=== PATIENT | male | born 1940 | race Caucasian/White ===

== ENCOUNTER 2020-04-23 09:21 | Emergency (ER) | payer MEDICARE, SELFPAY ==
--- NOTE | ~2020-04-23 | XR_ITS ---
XR lumbar spine min 4V DATE: 04/23/2020 09:56 INDICATION: Fall. Low back pain. TECHNIQUE: AP, lateral, bilateral oblique views, coned lateral lumbosacral view COMPARISON: None FINDINGS: There is diffuse osteopenia. There is degenerative spurring of the lower thoracic spine. There is degenerative change at the apophyseal joints at L4-5 and L5-S1 in particular, with associate d grade 1 anterolisthesis at L4-5. There is moderately severe degenerative disc disease at L5-S1. There is mild/moderate degenerative di sc disease at the remaining lumbar interspaces. No fracture or bone destruction is evident. The included lower thoracic and lumbar pedicles are intac t. The sacroiliac joints appear normal. Surgical clips, right upper quadrant, consistent with cholecystectomy. IMPRESSION: Diffuse osteopenia Mild lumbar dextroscoliosis Multilevel degenerative disc disease, most pronounced at L5-S1 Grade 1 anterolisthesis at L4-5 due to degenerative change at the apophyseal joints Reviewed, dictated and finalized at location A. [employer] IMPRESSION: Diffuse osteopenia Mild lumbar dextroscoliosis Multilevel degenerative disc disease, most pronounced at L5-S1 Grade 1 anterolisthesis at L4-5 due to degenerative change at the apophyseal dori ints
[2020-04-23 09:32] VITALS: BP 148/62; PULSE 66; RESP 17; TEMP 35.9; O2SAT 97
--- NOTE | 2020-04-23 10:05 | PC.NURSE ---
Pt back from radiology at this time.
--- NOTE | 2020-04-23 10:10 | ED.FALL ---
HPI - Fall General Chief Complaint: Fall Stated Complaint: fall, back pain Time Seen by Provider: 04/23/20 09:27 Source: patient Mode of arrival: ambulatory Limitations: no limitations History of Present Illness HPI Narrative: 80-year-old with a history of hypertension here with complaints of low back pain. Patient states that he was trying to move a chair in his garage and accidentally tripped and fell. He denies any head and neck pain. He states pain is mostly in the left lower back area. He denies any other injuries or complaints at this time. complaint: fall Onset (ago): day(s) (1) Fall from: standing Fall witnessed: no Place fall occurred: home Loss of consciousness: none Prolonged down time: no Symptoms prior to fall: none Context: tripped/slipped Location of injury: back Severity: moderate Quality: dull Associated symptoms (after fall): denies Related Data Allergies Allergy/AdvReac Type Severity Reaction Status Date / Time No Known Allergies Allergy Mild Unverified 06/06/19 11:54 Review of Systems Review of Systems: All systems reviewed & are unremarkable except as noted in HPI and below Constitutional: Constitutional: Reports no additional constitutional complaints Eyes: Eyes: Reports no additional eye complaints ENT: Reports system reviewed and no additional complaints, except as documented Cardiovascular: Cardiovascular: Reports no additional cardiovascular complaints Respiratory: Respiratory: Reports no additional respiratory complaints Gastrointestinal: Gastrointestinal: Reports no additional gastrointestinal complaints Musculoskeletal: Musculoskeletal: Reports as per HPI Neurologic: Reports system reviewed and no additional complaints, except as documented PMFSH Social History Social History Gender identity (if verbalized by the patient): Male Exam Narrative: Exam Narrative: GENERAL: Well-appearing, well-nourished, and in no acute distress. HEAD: Normocephalic, atraumatic. EYES: PERRLA and EOMI. ENT: Nares clear, no rhinorrhea or epistaxis. NECK: Supple. CHEST: Clear to auscultation. No respiratory distress. HEART: Regular rate and rhythm. No murmur heard. Normal peripheral pulses. ABDOMEN: Soft, nontender, nondistended. EXTREMITIES: Normal range of motion. No edema. Back : No vertebral point tenderness, no bruising note ,mild tenderness above the iliac crest SKIN: Warm, dry, no rash. NEURO: No focal deficits. Alert and oriented x3. PSYCH: Normal mood and affect. Course Course Emergency Course: informed pt about his Xray findings, advised him to take pain meds as needed. Vital Signs Vital signs: Vital Signs Temperature 35.9 C L 04/23/20 09:32 Pulse Rate 66 04/23/20 09:32 Respiratory Rate 17 04/23/20 09:32 Blood Pressure 148/62 H 04/23/20 09:32 Pulse Oximetry 97 04/23/20 09:32 Temperature 35.9 C L 04/23/20 09:32 Pulse Rate 66 04/23/20 09:32 Respiratory Rate 17 04/23/20 09:32 Blood Pressure 148/62 H 04/23/20 09:32 Pulse Oximetry 97 04/23/20 09:32 MDM - Fall Imaging Data Radiologist's impression: ITS Impressions Lumbar Spine X-Ray 04/23/20 09:58 IMPRESSION: Diffuse osteopenia Mild lumbar dextroscoliosis Multilevel degenerative disc disease, most pronounced at L5-S1 Grade 1 anterolisthesis at L4-5 due to degenerative change at the apophyseal joints Discharge Plan Discharge Clinical Impression: Contusion of lower back Qualifiers: Encounter type: initial encounter Qualified Code(s): S30.0XXA - Contusion of lower back and pelvis, initial encounter Patient Disposition: Home, Self-Care Condition: Stable Instructions: Antibiotic Form Prescriptions: New tramadol 50 mg tablet 50 mg PO Q6H PRN (Reason: pain) Qty: 14 RF: 0 Follow-up/Referrals: Anuj,MD Marta [Primary Care Provider] - Time of Disposition: 10:16
[2020-04-23 10:35] VITALS: BP 118/75; PULSE 78; RESP 16; O2SAT 100
== END 2020-04-23 10:36 | disposition home or self-care (01) ==
PROVIDERS: Emergency Provider Family Medicine; PCP Internal Medicine Geriatric Medicine
DX: S30.0XXA Contusion of lower back and pelvis, initial encounter (principal); M51.36 Other intervertebral disc degeneration, lumbar region; M51.37 Other intervertebral disc degeneration, lumbosacral region; W01.0XXA Fall on same level from slipping, tripping and stumbling without subsequent striking against object, initial encounter
CPT/HCPCS: 72110; 99283

== ENCOUNTER 2020-12-18 02:29 | Emergency (ER) | payer MEDICARE, SELFPAY ==
--- NOTE | ~2020-12-18 | XR_ITS ---
EXAMINATION: XR chest 1V portable DATE: 12/18/2020 02:55 INDICATION: Chest pain. TECHNIQUE: A single frontal view of the chest was obtained. COMPARISON: Chest single view 02/07/2016 FINDINGS: There are mild airspace opacities in the upper lung zones and lower lung zones. No pleural effusion or pneumothorax. The heart size is normal. Median sternotomy wires and mediastinal surgical clips are seen, likely from prior coronary artery bypass grafting. IMPRESSION: 1. Mild airspace opacities in the upper lung zones and lower lung zones, likely a combination of scar ring and atelectasis. Reviewed, dictated and finalized at location A. IMPRESSION: 1. Mild airspace opacities in the upper lung zones and lower lung zones, likely a combination of scarring and atelectasis.
--- NOTE | 2020-12-18 02:33 | ECG_ITS ---
Measurements Intervals [place] Rate: 65 P: 76 NH: 149 QRS: -15 QRSD: 83 T: 47 QT: 372 QTc: 387 Interpretive Statements SINUS RHYTHM INFERIOR INFARCT, AGE INDETERMINATE BORDERLINE ST ABNORMALITY- ANTEROLATERAL LEADS BASELINE ARTIFACT- I, II, AVR, AVL, AVF, V1 ABNORMAL ECG Electronically Signed On 12-18-2020 10:15:12 CDT by Dewey Clay D.O.
[2020-12-18 02:37] VITALS: BP 95/47; PULSE 69; RESP 23; TEMP 37; O2SAT 93
--- NOTE | 2020-12-18 02:43 | ED.NAVMDI ---
HPI - Nausea/Vomiting/Diarrhea General Chief complaint: Nausea/Vomiting/Diarrhea Stated complaint: N/V Time Seen by Provider: 12/18/20 02:34 Source: patient Mode of arrival: EMS Limitations: no limitations History of Present Illness HPI Narrative: Patient is an 80-year-old male complaining of nausea vomiting that started today. Patient describes his vomitus is nonbilious nonbloody. Patient states that he has been having URI symptoms for the few days, been coughing, productive clear yellowish sputum. Patient denies any chest pain, shortness of breath, abdominal pain, diarrhea, fever or chills. Patient states that his blood pressure is usually low and does not know why his doctor still prescribes him a blood pressure medication. Related Data Allergies Allergy/AdvReac Type Severity Reaction Status Date / Time No Known Allergies Allergy Mild Verified 12/18/20 02:51 Review of Systems Review of Systems: All systems reviewed & are unremarkable except as noted in HPI and below Constitutional: Constitutional: Denies body ache(s), Denies chills, Denies excessive sweating, Denies fatigue, Denies fever(s), Denies headache(s), Denies lethargy, Denies malaise, Denies weakness and Denies weight loss Eyes: Eyes: Denies blurry vision, Denies change in vision and Denies loss of vision ENT: Denies dizziness, Denies ear discharge, Denies headache(s), Denies lip swelling, Denies epistaxis, Denies nasal congestion, Denies neck pain, Denies throat swelling and Denies tongue swelling Cardiovascular: Cardiovascular: Denies chest pain, Denies chest pain at rest, Denies chest pain with activity, Denies diaphoresis, Denies rapid heart rate, Denies edema, Denies irregular heart rhythm, Denies lightheadedness, Denies palpitations, Denies dyspnea and Denies dyspnea on exertion Respiratory: Respiratory: Denies chest congestion, Denies cough, Denies hemoptysis, Denies dyspnea and Denies dyspnea on exertion Gastrointestinal: Gastrointestinal: Denies abdominal pain, Denies melena, Denies hematochezia, Denies diarrhea and Denies hematemesis Musculoskeletal: Musculoskeletal: Denies abnormal gait, Denies deformity, Denies joint swelling, Denies limited range of motion, Denies neck pain and Denies numbness Neurologic: Denies Abnormal speech present, Denies abnormal gait, Denies confusion, Denies dizziness, Denies headache(s), Denies focal weakness, Denies loss of vision, Denies numbness, Denies Other visual disturbances, Denies Sensory deficit (Neuro) and Denies weakness Psychiatric: Psychiatric: Denies confusion, Denies depression, Denies auditory hallucinations, Denies homicidal ideation and Denies suicidal ideation Endocrine: Endocrine: Denies cold intolerance, Denies excessive sweating, Denies fatigue, Denies heat intolerance and Denies palpitations Hematologic/Lymphatic: Hematologic/Lymphatic: Denies easy bleeding and Denies easy bruising Allergic/Immunologic: Allergic/Immunologic: Denies lip swelling, Denies throat swelling and Denies tongue swelling PMFSH Social History Social History Gender identity (if verbalized by the patient): Male Comments Past medical history: Coronary artery disease with stents Family history: Coronary artery disease Social history: Non-smoker no EtOH or drug use Exam Const: General: cooperative, healthy appearing, comfortable, no acute distress, well developed, alert and awake; No confusion Orientation/consciousness: oriented to person, oriented to place, oriented to time, patient oriented x3 and No confusion Limitations: no limitations Other: Frail HENMT: Head: normal to inspection, normocephalic and atraumatic Ears: hearing grossly normal bilaterally, TM normal on the right and TM normal on the left General nose exam: Normal external nose present, Normal nares present and No nasal discharge present Face and sinus: normal facial exam Mouth: Yes Normal oral and palatal
[2020-12-18] MEDS: LACTATED RINGERS 1,000 ML 999 ML IV CONT (02:50)
[2020-12-18 03:01] LABS: Basophils Percent Auto 0.6 % (0.2-1.2); Eosinophils Percent Auto 0.6 % (0-4.4); Hematocrit 41.6 % (42.0-52.0); Hemoglobin 13.5 g/dL (14.0-18.0); Immature Granulocyte Absolute 0.01 K/mm3 (0.00-0.031); Immature Granulocyte Percent A 0.2 % (0-0.5); Lymphocytes Absolute Auto 0.28 K/mm3 (0.9-3.2); Lymphocytes Percent Auto 4.4 % (18.3-44.2); Mean Corpuscular HGB Conc 32.5 g/dl (32-36); Mean Corpuscular Hemoglobin 31.1 pg (26-34); Mean Corpuscular Volume 95.9 fl (80-100); Mean Platelet Volume 9.2 fl (7.4-10.4); Monocytes Absolute Auto 0.5 K/mm3 (0.1-0.6); Monocytes Percent Auto 7.8 % (2.6-8.5); Neutrophils Absolute Auto 5.5 K/mm3 (1.3-6.7); Neutrophils Percent Auto 86.4 % (45.5-73.1); Platelet Count Result 156 k/mm3 (150-375); Red Blood Count 4.34 M/mm3 (4.6-6.20); Red Cell Distribution Width 12.9 % (11.5-14.5); White Blood Count 6.4 K/mm3 (4.5-10.0)
[2020-12-18 03:11] LABS: Alanine Aminotransferase 16 U/L (4-50); Albumin Level 4.1 g/dL (3.5-5.1); Alkaline Phosphatase 85 U/L (38-126); Anion Gap 8 mmol/L (8-16); Aspartate Amino Transferase 25 U/L (17-59); Bilirubin,Total 1.8 mg/dL (0.2-1.3); Blood Urea Nitrogen 12 mg/dL (9-20); Calcium 9.1 mg/dL (8.4-10.2); Carbon Dioxide 27 mmol/L (22-30); Chloride 100 mmol/L (98-107); Estimated CRCL calculation 54 ml/min; Estimated Glomerular Filt Rate > 60; Glucose 129 mg/dL (65-110); Lipase 103 U/L (23-300); Potassium 4.1 mmol/L (3.4-5.0); Sodium 135 mmol/L (137-145)
[2020-12-18 03:23] LABS: Troponin I < 0.012 ng/mL (0.000-0.034)
[2020-12-18 03:39] VITALS: BP 112/51; PULSE 65; RESP 14; O2SAT 95
[2020-12-18 03:46] LABS: Add Urine Microscopic? YES; Appearance Urine Clear (Clear); Bilirubin Urine Negative (Negative); Blood Urine 1+ (Negative); Color Urine Yellow (Yellow); Glucose Urine UA Negative (Negative); Ketones Urine Trace mg/dL (Negative); Leukocyte Esterase Ur Negative LEU/UL (Negative); Mucus Urine Rare /lpf; Nitrate Urine Negative (Negative); Protein Urine Negative (Negative); Specific Grav Ur 1.017 (1.001-1.035); Squamous Epithelial Cell Urine Rare /hpf (Few); WBC Urine 0-3 /hpf
[2020-12-18] MEDS: ONDANSETRON INJ 4 MG/2 ML VIAL IV PUSH (03:56)
[2020-12-18 04:51] LABS: Troponin I 0.014 ng/mL (0.000-0.034)
[2020-12-18 05:30] VITALS: BP 108/54; PULSE 66; RESP 18; O2SAT 95
== END 2020-12-18 05:30 | disposition home or self-care (01) ==
PROVIDERS: Emergency Provider Emergency Medicine; PCP Internal Medicine Geriatric Medicine
DX: R11.2 Nausea with vomiting, unspecified (principal); I25.10 Atherosclerotic heart disease of native coronary artery without angina pectoris; Z95.5 Presence of coronary angioplasty implant and graft; R94.31 Abnormal electrocardiogram [ECG] [EKG]
CPT/HCPCS: 36415; 71045; 80053; 81001; 83690; 84484; 85025; 93005; 96361; 96374; 99284; J2405; J7120

== ENCOUNTER 2020-12-23 10:06 | Emergency (ER) | payer MEDICARE, SELFPAY ==
[2020-12-23 10:28] VITALS: BP 170/74; PULSE 87; RESP 20; TEMP 36.6; O2SAT 94
--- NOTE | 2020-12-23 10:34 | ED.URI ---
HPI - URI/Sore Throat General Chief Complaint: Upper Respiratory Infection Stated Complaint: Cough,Chest Congestion,Nausea Time Seen by Provider: 12/23/20 10:22 Source: patient and RN notes reviewed Mode of arrival: ambulatory History of Present Illness HPI Narrative: This is a 80-year-old male who presented to urgent care with complaints of a cough nausea vomiting, congestion and subjective fever. According to patient he visited [facility] couple of weeks ago due to the symptoms. According to patient in the past he has had the symptoms and had cardiac issues. That particular visit patient symptoms was not cardiac associated. Patient is notes that he continues to have a cough with congestion weakness decreased appetite and shortness of breath. Patient will be tested for Covid he has been vaccinated. The patient denies , CP, palpitation, extremity numbness, lightheadedness, dizziness, constipation, diarrhea, chills, or fever. Covid negative Related Data Home Medications Medication Instructions Recorded Confirmed atorvastatin 40 mg PO DAILY 12/23/20 12/23/20 benazepril 5 mg PO DAILY 12/23/20 12/23/20 nitroglycerin 0.4 mg SUBLINGUAL .PRN PRN 12/23/20 12/23/20 Allergies Allergy/AdvReac Type Severity Reaction Status Date / Time No Known Allergies Allergy Mild Verified 12/23/20 10:36 Review of Systems Review of Systems: A 14 organ system Review of Systems was performed and pertinent positives included in the HPI, otherwise remaining ROS is negative. [facility] Social History Social History Gender identity (if verbalized by the patient): Male Exam Narrative: GENERAL: This is a well-nourished, well-developed patient, in no apparent distress. HEAD: normocephalic, atraumatic. EYES: PERRL. Sclera clear/white. Vision is grossly intact. EARS: External ears normal, auditory canals clear and without drainage, TMs normal without perforation. Hearing grossly intact. NOSE: External nose normal with no obvious nasal discharge, nares without redness, no rhinorrhea. THROAT: Mucous membranes moist, posterior pharynx clear. NECK: Neck supple, non-tender without lymphadenopathy, masses or thyromegaly. CARDIOVASCULAR: Regular rate and rhythm without murmurs, gallops, or rubs. RESPIRATORY: Clear to auscultation. Breath sounds equal bilaterally. No wheezes, rales, or rhonchi. GASTROINTESTINAL: Abdomen soft, non-tender, nondistended. Bowel sounds are active. No hepato-splenomegaly, or palpable masses. No guarding. SKIN: warm, intact with no suspicious lesions or rash, good texture and turgor. NEURO: awake, alert, and oriented to person, place and time. There were no obvious focal neurologic abnormalities. Steady gait EXTREMITIES: Normal range of motion. No edema. No calf tenderness. Negative Homans sign bilaterally. BACK: Nontender without deformity or crepitance. No flank tenderness. Course Course Emergency Course: Patient will be treated for common cold he will be given prednisone, albuterol, Tessalon Perles and guaifenesin. Vital Signs Vital signs: Vital Signs Temperature 97.9 F 12/23/20 10:28 Pulse Rate 87 12/23/20 10:28 Respiratory Rate 20 12/23/20 10:28 Blood Pressure 170/74 H 12/23/20 10:28 Pulse Oximetry 94 12/23/20 10:28 Temperature 97.9 F 12/23/20 10:28 Pulse Rate 87 12/23/20 10:28 Respiratory Rate 20 12/23/20 10:28 Blood Pressure 170/74 H 12/23/20 10:28 Pulse Oximetry 94 12/23/20 10:28 MDM - URI/Sore Throat Differential Diagnosis Differential diagnosis: Likely upper respiratory infection, viral infection, bronchitis and influenza Lab Data Labs: Lab Results 12/23/20 Range/Units 10:34 POC SARS CoV-2 Ag Negative (Negative) Discharge Plan Discharge Clinical Impression: Common cold Patient Disposition: Home, Self-Care Condition: Stable Instructions: Antibiotic Form, Cold Symptoms (ED) Additional Instruct
== END 2020-12-23 10:56 | disposition home or self-care (01) ==
PROVIDERS: Emergency Provider Nurse Practitioner; PCP Internal Medicine Geriatric Medicine
DX: J00 Acute nasopharyngitis [common cold] (principal); Z20.822 Contact with and (suspected) exposure to COVID-19
CPT/HCPCS: 87426; 99213; C9803; G0463

== ENCOUNTER 2021-10-26 10:30 | Outpatient (RCR) | payer MEDICARE, SELFPAY ==
[2021-10-12 08:02] VITALS: BP_SYST 108; BP_SYST 125
--- NOTE | 2021-10-12 09:06 | PTOPEVAL ---
PHYSICAL THERAPY INITIAL EVALUATION. Thank you for referring Dariel Promise Garrett Jr. to [facility] [place].? The patient is scheduled to be seen for therapy? 1x/week for 4 weeks. Please review, sign, date and return this plan of care JOSE. I agree with and certify that the following plan of care is medically necessary. Referring Physician Date Attending Provider: Marta Leslie, MD *PT Outpatient Evaluation Start: 10/12/21 Evaluation Information Diagnosis osteoporosis, shoulder arthritis Onset 3 months Subjective Information Pt report his main complaint Query Text:As Reported By Patient/ is his L shoulder pain, and a Family little less so, the pain in the R shoulder. He states this has been going on for about 3 -4 months. He reports he does not have any back pain but could afford to stand/sit up a little straighter. He reports his shoulder hurts most when he is rolling over in bed. Pain Assessment Self Report Pain Assessment Left Shoulder(s) Reported Pain Level 0 Pain Description Aching Lowest Pain Intensity 0 Greatest Pain Intensity 4 Pain Aggravating Factors Prolonged Position Upper Extremity Range of Motion Scapular/ Shoulder Range of Motion Right Shoulder Flexion - Active 127 Shoulder Flexion - Passive 155 Shoulder Abduction - Active 110 Shoulder Abduction - Passive 125 Shoulder Medial Rotation - Active T7 Shoulder Lateral Rotation - Active T4 Left Shoulder Flexion - Active 100 Shoulder Flexion - Passive 116 Shoulder Abduction - Active 82 Shoulder Abduction - Passive 108 Shoulder Medial Rotation - Active T7 Shoulder Lateral Rotation - Active T3 Upper Extremity Muscle Strength Testing Scapular/Shoulder Right Shoulder Flexion Strength 5 Normal Shoulder Abduction Strength 4+ Good + Shoulder Medial Rotation Strength 4 Good Shoulder Lateral Rotation Strength 4 Good Left Shoulder Flexion Strength 4- Good - Shoulder Abduction Strength 4- Good - Shoulder Medial Rotation Strength 4 Good Shoulder Lateral Rotation Strength 4 Good Shoulder Strength Comments increased upper trap recruitment with active shoulder motions Posture Standing Position Shoulder Posture (L) Rounded,(R) Rounded,(L) Forward,(R) Forward Palpation Assessment Palpation to tenderness reported Safety Assessment Factors Affecting Safety No Concerns Manual Therapy Side
--- NOTE | 2021-11-23 09:43 | PTOPDC ---
Assessment and note entered by Ashley Cronin, PT, DPT Evaluation Information Assessment Status Discharge - Pt Not Present Diagnosis L shoulder arthritis Subjective Information Called and spoke with patient as he did not have any treatments scheduled. He reports his shoulder is doing well and he is still not having any pain. Assessment PT Clinical Summary Dariel has completed 3 visits of therapy from to 10/26/21. He states he no longer need therapy and he will continue his exercises at home. He will be discharged from therapy at this time. If he would like to return at a later date, he will need a new order. Plan of Care Treatment Frequency and to be d/c'ed Duration
== END 2021-11-23 11:16 | disposition home or self-care (01) ==
LOC: ANHPT 10:30
PROVIDERS: PCP Internal Medicine Geriatric Medicine; Visit Provider Internal Medicine Geriatric Medicine
DX: M81.8 Other osteoporosis without current pathological fracture (principal); M75.40 Impingement syndrome of unspecified shoulder; M54.50 Low back pain, unspecified; G89.29 Other chronic pain
CPT/HCPCS: 97110; 97112; 97140; 97161